=== PATIENT | male | born 1975 | race Caucasian/White ===

== ENCOUNTER 2017-12-25 06:27 | Emergency (ER) | payer BC ==
[2017-12-25] MEDS ORDERED: NA CHLORIDE 0.9% 1,000 ML ONE (07:20)
[2017-12-25 07:45] LABS: Absolute Lymphocytes (CBC) 1.3 K/uL (0.7-4.9); Absolute Monocytes 0.7 K/uL (0.1-1.3); Absolute Neutrophil 6.1 K/uL (1.8-8.0); Basophils % 0.1 % (0-1.3); Eosinophils % 0.5 % (0-4.4); Hematocrit 47.4 % (39.6-49.0); Lymphocytes % 15.5 % (15.3-44.8); MCH 29.3 pg (27.0-35.0); MCV 86.3 fL (80-100); MPV 9.5 fL (7.6-11.3); Monocytes % 9.1 % (3.3-12.3); RBC Red Blood Cell Count 5.49 M/uL (4.33-5.43)
[2017-12-25 07:55] LABS: Albumin 4.1 g/dL (3.2-5.5); Bilirubin Direct 0.1 mg/dL (0-0.2); Bilirubin Total 0.8 mg/dL (0.3-1.2); Protein, Total 7.3 g/dL (6.0-8.3)
--- NOTE | 2017-12-25 08:16 | RAD REPORT ---
EXAM DESCRIPTION: CT - Abdomen Pelvis Wo Contrast - 12/25/2017 7:44 am CLINICAL HISTORY: Left flank and lower quadrant pain, testicular pain, vomiting COMPARISON: None. TECHNIQUE: Axial [address] imaging of the abdomen and pelvis was performed without IV contrast. No IV contrast was given because of allergy, abnormal renal function, patient refusal or physician re quest. Oral contrast was given. All CT scans are performed using dose optimization technique as appropriate and may include automated exposure control or mA/KV adjustment according to patient size. FINDINGS: No suspicious findings in the lung bases. The liver, spleen and pancreas show no suspicious findings on non-contrast imaging. Gallbladder and b iliary tree are also without suspicious finding. Gallstones can be occult on CT imaging. Mild left-sided hydronephrosis is present. There is a 5 millimeter distal left ureteral calculus pres ent positioned approximately 2 cm from the UVJ. Numerous phleboliths are seen in the pelvis. No right -sided hydronephrosis. No additional calculi seen. In the hilum of the left kidney an 18 millimeter r ound low-density mass is present believed to be an incidental cyst. No significant adrenal finding. Isodense renal masses and pyelonephritis cannot be excluded in the absence of IV contrast. Partially filled urinary bladder shows no suspicious finding. Prostate gland and seminal vesicles are normal ra nge. No dilated bowel loops or bowel wall thickening. No free air, free fluid or inflammatory stranding. N o mass or bulky lymphadenopathy. Fat filled left inguinal hernia present. A an 18 millimeter umbilica l fat only hernia is present. No suspicious bony findings. IMPRESSION: Mild left-sided hydronephrosis secondary to a 5 millimeter distal ureteral stone positio n approximately 2 cm from the UVJ. Additional nonacute findings detailed in the body of the report. Full assessment is limited is the absence of IV contrast.
[2017-12-25 09:27] LABS: Urine Bacteria NONE SEEN /HPF (NONE SEEN); Urine Culture Reflex Order NOT NEEDED; Urine Mucus LIGHT /HPF (NONE SEEN); Urine RBC >50 /HPF (NONE SEEN)
--- NOTE | 2017-12-25 09:58 | ER ---
Nurse's Notes [facility] Name: Jaya Le Age: 42 yrs Sex: Male : 1975 Arrival Date: 12/25/2017 Time: 06:30 Bed 18 Private MD: Diagnosis: Calculus of ureter Presentation: 12/25 07:10 Presenting complaint: Patient states: Pain started in my groin then went up to my low jl7 back this morning. Transition of care: patient was not received from another setting of care. Onset of symptoms was December 25, 2017. Initial Sepsis Screen: Does the patient meet any 2 criteria? No. Patient's initial sepsis screen is negative. Does the patient have a suspected source of infection? No. Patient's initial sepsis screen is negative. Care prior to arrival: None. 07:10 Method Of Arrival: Ambulatory jl7 07:10 Acuity: KUSHAL 3 jl7 Triage Assessment: 07:20 General: Appears in no apparent distress. uncomfortable, Behavior is calm, cooperative, jl7 appropriate for age. Pain: Complains of pain in groin Pain radiates to posterior aspect of right lateral abdomen and left lower quadrant Pain currently is 1 out of 10 on a pain scale. at worst was 10 out of 10 on a pain scale. Quality of pain is described as pressure, Pain began suddenly, Is intermittent. EENT: No signs and/or symptoms were reported regarding the EENT system. Neuro: Level of Consciousness is awake, alert, obeys commands, Oriented to person, place, time, situation. Cardiovascular: Patient's skin is warm and dry. Respiratory: Airway is patent Respiratory effort is even, unlabored, Respiratory pattern is regular, symmetrical. GI: No signs and/or symptoms were reported involving the gastrointestinal system. : Denies burning with urination. Derm: Skin is pink, warm \T\ dry. Musculoskeletal: No signs and/or symptoms reported regarding the musculoskeletal system. Historical: - Allergies: 07:20 No Known Allergies; jl7 - Home Meds: 07:20 None [Active]; jl7 - PMHx: 07:20 None; jl7 - PSHx: 07:20 None; jl7 - Immunization history:: Adult Immunizations up to date. - Social history:: Patient/guardian denies using alcohol, street drugs, The patient lives alone, Smoking status: Patient/guardian denies using tobacco. - Family history:: not pertinent. Screenin:35 Abuse screen: Denies threats or abuse. Nutritional screening: No deficits noted. jl7 Tuberculosis screening: No symptoms or risk factors identified. Fall Risk IV access (20 points). Total Castro Fall Scale indicates No Risk (0-24 pts). Assessment: 07:20 General: See triage assessment. jl7 07:34 Reassessment: family member remains at bedside with patient. Warm blankets given for ss comfort. Call light within reach. 08:30 Reassessment: No changes from previously documented assessment. Patient and/or family jl7 updated on plan of care and expected duration. Pain level reassessed. Patient is alert, oriented x 3, equal unlabored respirations, skin warm/dry/pink. 09:35 Reassessment: Patient and/or family updated on plan of care and expected duration. Pain jl7 level reassessed. Patient is alert, oriented x 3, equal unlabored respirations, skin warm/dry/pink. Vital Signs: 07:20 BP 116 / 85; Pulse 80; Resp 16 S; Temp 97.7(O); Pulse Ox 96% on R/A; Weight 84.37 kg jl7 (R); Height 5 ft. 6 in. (167.64 cm) (R); Pain 09/05; 08:20 BP 121 / 86; Pulse 75; Resp 16; Pulse Ox 96% ; jl7 09:35 BP 123 / 86; Pulse 74; Resp 16; Pulse Ox 96% ; jl7 07:20 Body Mass Index 30.02 (84.37 kg, 167.64 cm) jl7 ED Course: 06:30 Patient arrived in ED. al2 06:57 Abby Nguyen MD is Attending Physician. ma2 07:12 Osmani Tee RN is Primary Nurse. jl7 07:20 Arm band placed on right wrist. jl7 07:20 Patient has correct armband on for positive identification. Placed in gown. Bed in low jl7 position. Call light in reach. Side rails up X 1. Pulse ox on. NIBP on. Warm blanket given. 07:24 Inserted saline lock: 20 gauge in right antecubital area, using aseptic technique. ss Blood collected. 07:41 CT completed. Patient tolerated procedure well. Patient moved to CT via stretcher. sj Patient moved back from CT. 07:44 CT Abd/Pelvis - Without Cont In Process Unspecified. EDMS 08:56 Triage completed. jl7 09:15 Urine Microscopic Only Sent. [facility] 10:28 No provider procedures requiring assistance completed. IV discontinued, intact, jl7 bleeding controlled, No redness/swelling at site. Pressure dressing applied. Administered Medications: 07:33 Drug: NS 0.9% 1000 ml Route: IV; Rate: 1 bolus; Site: right antecubital; 08:30 Follow up: IV Status: Completed infusion jl7 Outcome: 09:58 Discharge ordered by . willian 10:28 Discharged to home ambulatory. jl7 10:28 Condition: stable 10:28 Discharge instructions given to patient, family, Instructed on discharge instructions, follow up and referral plans. medication usage, Demonstrated understanding of instructions, follow-up care, medications, Prescriptions given X 3. 10:29 Patient left the ED. jl7 Signatures: Dispatcher [employer] EDKathryn Lord Shelby, Magali Prescott RN [facility] Osmani Tee RN RN 7 Debbie Dempsey Mohammad, MD MD ma2
--- NOTE | 2017-12-25 09:58 | EDPHYS ---
Physician Documentation [facility] Name: Jaya Le Age: 42 yrs Sex: Male : 1975 Arrival Date: 12/25/2017 Time: 06:30 Bed 18 Private MD: ED Physician Abby Nguyen HPI: 12/25 07:08 This 42 yrs old Male presents to ER via Unassigned with complaints of ma2 Testicular Pain. 07:08 The patient presents with flank pain, described as dull. Onset: The symptoms/episode ma2 began/occurred gradually, 1 day(s) ago. Associated signs and symptoms: Pertinent positives: abdominal pain, vomiting. Severity of symptoms: At their worst the symptoms were severe, in the emergency department the symptoms have resolved. The patient has not experienced similar symptoms in the past. 6 hours of constant severe left lower quadrant pain that radiated to both testicles. had 2 episodes of vomiting, pain is resolved never had this before . Historical: - Allergies: 07:20 No Known Allergies; jl7 - Home Meds: 07:20 None [Active]; jl7 - PMHx: 07:20 None; jl7 - PSHx: 07:20 None; jl7 - Immunization history:: Adult Immunizations up to date. - Social history:: Patient/guardian denies using alcohol, street drugs, The patient lives alone, Smoking status: Patient/guardian denies using tobacco. - Family history:: not pertinent. ROS: 07:08 Constitutional: Negative for fever, chills, and weight loss, Eyes: Negative for injury, ma2 pain, redness, and discharge, ENT: Negative for injury, pain, and discharge, Neck: Negative for injury, pain, and swelling, Cardiovascular: Negative for chest pain, palpitations, and edema, Respiratory: Negative for shortness of breath, cough, wheezing, and pleuritic chest pain, Back: Negative for injury and pain, MS/Extremity: Negative for injury and deformity, Skin: Negative for injury, rash, and discoloration, Neuro: Negative for headache, weakness, numbness, tingling, and seizure, Psych: Negative for depression, anxiety, suicide ideation, homicidal ideation, and hallucinations, Allergy/Immunology: Negative for hives, rash, and allergies, Endocrine: Negative for neck swelling, polydipsia, polyuria, polyphagia, and marked weight changes, Hematologic/Lymphatic: Negative for swollen nodes, abnormal bleeding, and unusual bruising. Exam: 07:08 Constitutional: This is a well developed, well nourished patient who is awake, alert, ma2 and in no acute distress. Head/Face: Normocephalic, atraumatic. Chest/axilla: Normal chest wall appearance and motion. Nontender with no deformity. No lesions are appreciated. Cardiovascular: Regular rate and rhythm with a normal S1 and S2. No gallops, murmurs, or rubs. Normal PMI, no JVD. No pulse deficits. Respiratory: Lungs have equal breath sounds bilaterally, clear to auscultation and percussion. No rales, rhonchi or wheezes noted. No increased work of breathing, no retractions or nasal flaring. Abdomen/GI: Soft, non-tender, with normal bowel sounds. No distension or tympany. No guarding or rebound. No evidence of tenderness throughout. Male : Normal genitalia with no discharge or lesions. Vital Signs: 07:20 BP 116 / 85; Pulse 80; Resp 16 S; Temp 97.7(O); Pulse Ox 96% on R/A; Weight 84.37 kg jl7 (R); Height 5 ft. 6 in. (167.64 cm) (R); Pain 1/10; 08:20 BP 121 / 86; Pulse 75; Resp 16; Pulse Ox 96% ; jl7 09:35 BP 123 / 86; Pulse 74; Resp 16; Pulse Ox 96% ; jl7 07:20 Body Mass Index 30.02 (84.37 kg, 167.64 cm) 7 MDM: 06:58 Patient medically screened. ma2 07:08 Differential diagnosis: nonspecific abdominal pain, UTI, prostatitis, left ureteric ma2 stone vs kidney stone vs pyelonephritis unlikely testicular condition such as torsion or epididymitis given normal exam, unlikely diverticulitis given no tenderness. Data reviewed: vital signs, nurses notes, EMS record, diagnostic data from outside facility. 09:56 Counseling: I had a detailed discussion with the patient and/or guardian regarding: the ma2 historical points, exam findings, and any diagnostic results supporting the discharge/admit diagnosis, the presence of at least one elevated blood pressure reading (>120/80) during this emergency department visit, the need for outpatient follow up. Response to treatment: the patient's symptoms have markedly improved after treatment. ED course: has 5 mm stone 2 cm above UPJ, no symptoms now will send to urology outpatient with flomax zofran and T3 . 12/25 07:08 Order name: Amylase, Serum; Complete Time: 08:34 ma12/25 07:08 Order name: Basic Metabolic Panel; Complete Time: 08:34 ia12/25 07:08 Order name: CBC with Diff; Complete Time: 07:47 12/25 07:08 Order name: Creatinine for Radiology; Complete Time: 08:34 ia12/25 07:08 Order name: Hepatic Function; Complete Time: 08:34 ia12/25 07:08 Order name: Lipase; Complete Time: 08:34 ia12/25 07:08 Order name: Urine Microscopic Only; Complete Time: 09:54 12/25 09:56 Interpretation: Abnormal. 12/25 07:08 Order name: IV Saline Lock; Complete Time: 07:33 12/25 07:08 Order name: Labs collected and sent; Complete Time: 07:33 12/25 07:08 Order name: Urine Dipstick-Ancillary (obtain specimen); Complete Time: 09:15 ia12/25 07:08 Order name: CT Abd/Pelvis - Without Cont; Complete Time: 08:34 12/25 09:19 Order name: Urine Dipstick--Ancillary (enter results) ag Administered Medications: 07:33 Drug: NS 0.9% 1000 ml Route: IV; Rate: 1 bolus; Site: right antecubital; ss 08:30 Follow up: IV Status: Completed infusion jl7 Disposition: 12/25/17 09:58 Discharged to Home. Impression: Calculus of ureter. - Condition is Stable. - Discharge Instructions: Kidney Stones, Ureteral Colic, Ureteral Colic, [id number], Dietary Guidelines to Help Prevent Kidney Stones. - Prescriptions for Tylenol- Codeine #3 300-30 mg Oral Tablet - take 2 tablet by ORAL route every 6 hours As needed; 30 tablet. Zofran 4 mg Oral Tablet - take 1 tablet by ORAL route every 12 hours As needed; 20 tablet. Flomax 0.4 mg Oral Capsule, Sust. Release 24 hr - take 1 capsule by ORAL route once daily 1/2 hour following the same meal each day; 30 capsule. - Family Work Release, Medication Reconciliation Form, Thank You Letter, Antibiotic Education, Prescription Opioid Use form. - Follow up: Private Physician; When: Tomorrow; Reason: Continuance of care. - Problem is new. - Symptoms have improved. Signatures: Dispatcher [employer] Pavithra Zepeda RN RN ss Osmani Tee RN RN jl7 Abby Nguyen MD MD ma2
[2017-12-25 12:14] LABS: Urine Blood 3+ (NEG); Urine Glucose NEGATIVE (NEG); Urine Protein NEGATIVE (NEG); Urine Specific Gravity 1.015 (1.005-1.030); Urine pH 5.5 (5.0-7.0)
== END 2017-12-25 10:29 | disposition home or self-care (01) ==
LOC: ER 06:27
DX: N20.1 Calculus of ureter (principal)
CPT/HCPCS: 36415; 74176; 80048; 80076; 81003; 81015; 82150; 83690; 85025; 96360; 99284; J7030

== ENCOUNTER 2018-01-15 08:07 | Emergency (ER) | payer BC ==
[2018-01-15] MEDS ORDERED: KETOROLAC 30 MG/ML INJ ONE (08:33)
[2018-01-15] MEDS ORDERED: ONDANSETRON 4 MG/2 ML VIAL ONE (08:33)
[2018-01-15] MEDS ORDERED: NA CHLORIDE 0.9% 1,000 ML ONE (08:34)
[2018-01-15 08:40] LABS: Absolute Lymphocytes (CBC) 1.1 K/uL (0.7-4.9); Absolute Neutrophil 11.3 K/uL (1.8-8.0); Basophils % 0.1 % (0-1.3); Hematocrit 46.3 % (39.6-49.0); Lymphocytes % 8.3 % (15.3-44.8); MCH 28.9 pg (27.0-35.0); MCV 87.1 fL (80-100); MPV 9.2 fL (7.6-11.3); Monocytes % 7.7 % (3.3-12.3); RBC Red Blood Cell Count 5.32 M/uL (4.33-5.43)
[2018-01-15 08:50] LABS: Urine Blood 2+ (NEG); Urine Glucose NEGATIVE (NEG); Urine Protein NEGATIVE (NEG); Urine Specific Gravity >1.030 (1.005-1.030)
[2018-01-15 08:51] LABS: Potassium 3.8 mEq/L (3.6-5.0)
--- NOTE | 2018-01-15 09:16 | RAD REPORT ---
EXAM DESCRIPTION: CT - Stone Protocol - 01/15/2018 8:52 am CLINICAL HISTORY: Flank pain. COMPARISON: 12/25/2017 CT TECHNIQUE: Axial images were obtained without oral or IV contrast. Lack of contrast limits solid org an and vascular assessment. The [id number] spans the entirety of the system partially obscuring uppermost abdomen and lung bases. Coronal reformatted images were obtained and reviewed. All CT scans are performed using dose optimization technique as appropriate and may include automated exposure control or mA/KV adjustment according to patient size. FINDINGS: The lower lung hong are clear. Imaged portions of the liver and spleen show no suspicious findings on non-contrast imaging. The panc reas and adrenal glands are normal. No pathologic lymphadenopathy in the abdomen or pelvis. The previously noted 4-5 mm distal left ureter calculus appears to have migrated slightly inferiorly resting approximately 5 mm from the left UVJ. Mild left-sided hydronephrosis is present. No renal alexander culi in either kidney. No bladder calculus. Small fat containing umbilical hernia. No bowel obstruction, free air, free fluid or abscess. The appendix is not identified as a discrete s tructure, however, no secondary findings of appendicitis are identified. Moderate L5-S1 spondylosis. IMPRESSION: Small distal left ureter stone has migrated to the level of the left UVJ since the denys rative study. Mild left hydronephrosis persists.
[2018-01-15 09:43] LABS: Calcium Oxalate Crystals- Ur PRESENT (NONE SEEN); Urine Bacteria <20 /HPF (NONE SEEN); Urine Culture Reflex Order NOT NEEDED
--- NOTE | 2018-01-15 10:11 | ER ---
Nurse's Notes [facility] Name: Jaya Le Age: 42 yrs Sex: Male : 1975 Arrival Date: 01/15/2018 Time: 08:11 Bed 15 Private MD: None, None Diagnosis: Calculus of kidney and ureter Presentation: 01/15 08:15 Presenting complaint: Patient states: dx with kidney stone two weeks ago, states at 0300 woke up with sharp stabbing pain to L side, and has been vomiting since then. Transition of care: patient was not received from another setting of care. Onset of symptoms was January 15, 2018 at 03:00. Risk Assessment: Do you want to hurt yourself or someone else? Patient reports no desire to harm self or others. Initial Sepsis Screen: Does the patient meet any 2 criteria? No. Patient's initial sepsis screen is negative. Does the patient have a suspected source of infection? No. Patient's initial sepsis screen is negative. Care prior to arrival: None. 08:15 Method Of Arrival: Ambulatory 08:15 Acuity: KUSHAL 3 ch Triage Assessment: 08:18 General: Appears in no apparent distress. comfortable, Behavior is calm, cooperative, ch appropriate for age. Pain: Complains of pain in left low back, left mid back, anterior aspect of left lateral abdomen, posterior aspect of left lateral abdomen and pelvis Pain currently is 9 out of 10 on a pain scale. Pain began suddenly. GI: Abdomen is round non-distended, Bowel sounds present X 4 quads. Reports nausea, vomiting. : Reports decreased urination, flank pain. Derm: Skin is pink, warm \T\ dry. Historical: - Allergies: 08:18 No Known Allergies; ch - Home Meds: 08:18 Flomax 0.4 mg Oral cp24 1 cap once daily [Active]; ch - PMHx: 08:18 Kidney stones; ch - PSHx: 08:18 None; ch - Immunization history:: Adult Immunizations up to date, Last tetanus immunization: not indicated for visit today. Flu vaccine is not up to date. - Social history:: Smoking status: Patient/guardian denies using tobacco, Patient/guardian denies using alcohol, street drugs. Screenin:20 Abuse screen: Denies threats or abuse. Denies injuries from another. Nutritional ch screening: No deficits noted. Tuberculosis screening: No symptoms or risk factors identified. Fall Risk None identified. Assessment: 08:20 GI: Abd is soft and non tender X 4 quads. GI: Reports nausea, vomiting. ch 08:43 Reassessment: Patient appears in no apparent distress at this time. Patient and/or ch family updated on plan of care and expected duration. Pain level reassessed. Patient is alert, oriented x 3, equal unlabored respirations, skin warm/dry/pink. Patient states feeling better. Patient states symptoms have improved. 10:19 Reassessment: Patient appears in no apparent distress at this time. Patient and/or ch family updated on plan of care and expected duration. Pain level reassessed. Patient is alert, oriented x 3, equal unlabored respirations, skin warm/dry/pink. Patient states feeling better. Patient states symptoms have improved. Vital Signs: 08:18 BP 152 / 100; Pulse 69; Resp 18; Temp 97.6(O); Pulse Ox 97% on R/A; Weight 81.65 kg; ch Height 5 ft. 7 in. (170.18 cm); Pain 9/10; 09:03 BP 155 / 87; Pulse 62; Resp 15; Pulse Ox 98% on R/A; Pain 7/10; ch 10:19 BP 132 / 78; Pulse 58; Resp 16; Temp 98.3; Pulse Ox 99% on R/A; Pain 5/10; ch 08:18 Body Mass Index 28.19 (81.65 kg, 170.18 cm) ED Course: 08:11 Patient arrived in ED. mr 08:11 None, None is Private Physician. mr 08:12 A[facility] Salguero [facility]C [facility]. kb 08:12 William Jameson MD is Attending Physician. kb 08:15 Ivanna Solares, LEOPOLDO is Primary Nurse. ch 08:17 Triage completed. ch 08:18 Arm band placed on left wrist. ch 08:20 No apparent distress. Resting quietly. ch 08:20 Patient has correct armband on for positive identification. Placed in gown. Bed in low ch position. Call light in reach. Side rails up X 1. Pulse ox on. NIBP on. Warm blanket given. 08:20 No provider procedures requiring assistance completed. ch 08:30 Inserted saline lock: 18 gauge in right antecubital area, using aseptic technique. ch Blood collected. 08:50 CT completed. Patient tolerated procedure well. Patient moved to CT via wheelchair. sj Patient moved back from CT. 08:52 CT Stone Protocol In Process Unspecified. EDMS 10:10 Liang Casarez MD is Referral Physician. kb 10:19 IV discontinued, intact, bleeding controlled, No redness/swelling at site. Pressure ch dressing applied. Administered Medications: 08:35 Drug: NS 0.9% 1000 ml Route: IV; Rate: 1000 ml; Site: right antecubital; ch 10:22 Follow up: IV Status: Completed infusion; IV Intake: 1000ml ch 08:35 Drug: TORadol 30 mg Route: IVP; Site: right antecubital; ch 10:22 Follow up: Response: No adverse reaction; Marked relief of symptoms ch 08:35 Drug: Zofran 4 mg Route: IVP; Site: right antecubital; ch 10:22 Follow up: Response: No adverse reaction; Marked relief of symptoms ch Intake: 10:22 IV: 1000ml; Total: 1000ml. ch Outcome: 10:10 Discharge ordered by . kb 10:19 Discharged to home ambulatory, with family. ch 10:19 Condition: improved 10:19 Discharge instructions given to patient, family, Instructed on discharge instructions, follow up and referral plans. medication usage, Demonstrated understanding of instructions, follow-up care, medications, Prescriptions given X 1. 10:20 Patient left the ED. ch Signatures: Dispatcher [employer] EDPR Alyssa Salguero, CIERRA MARTINEZ-Ivanna Myers, RN Magali Tao ch, Susan sj
--- NOTE | 2018-01-15 10:11 | EDPHYS ---
Physician Documentation [facility] Name: Jaya Le Age: 42 yrs Sex: Male : 1975 Arrival Date: 01/15/2018 Time: 08:11 Bed 15 Private MD: None, None ED Physician William Jameson HPI: 01/15 08:25 This 42 yrs old Male presents to ER via Ambulatory with complaints of kb Possible Kidney Stone. 08:25 The patient complains of pain in the left flank. The pain radiates to the groin. Onset: kb The symptoms/episode began/occurred this morning, at 03:00. Modifying factors: The symptoms are alleviated by nothing. the symptoms are aggravated by nothing. Associated signs and symptoms: Pertinent positives: nausea, vomiting, Pertinent negatives: diarrhea, dizziness, dysuria, fever, urinary frequency, headache, nausea, pain radiating to the lower extremities. Severity of pain: At its worst the pain was moderate in the emergency department the pain is unchanged. The patient has not experienced similar symptoms in the past. The patient has not recently seen a physician. Historical: - Allergies: 08:18 No Known Allergies; ch - Home Meds: 08:18 Flomax 0.4 mg Oral cp24 1 cap once daily [Active]; ch - PMHx: 08:18 Kidney stones; ch - PSHx: 08:18 None; ch - Immunization history:: Adult Immunizations up to date, Last tetanus immunization: not indicated for visit today. Flu vaccine is not up to date. - Social history:: Smoking status: Patient/guardian denies using tobacco, Patient/guardian denies using alcohol, street drugs. ROS: 08:24 Constitutional: Negative for fever, chills, and weight loss, Cardiovascular: Negative kb for chest pain, palpitations, and edema, Respiratory: Negative for shortness of breath, cough, wheezing, and pleuritic chest pain, Abdomen/GI: Negative for abdominal pain, nausea, vomiting, diarrhea, and constipation, : Negative for injury, bleeding, discharge, and swelling, MS/Extremity: Negative for injury and deformity, Skin: Negative for injury, rash, and discoloration, Neuro: Negative for headache, weakness, numbness, tingling, and seizure. 08:24 Back: Positive for flank pain, on the left, radiated pain, Negative for injury or acute deformity, decreased range of motion, pain at rest, pain with movement. Exam: 08:24 Constitutional: This is a well developed, well nourished patient who is awake, alert, kb and in no acute distress. Head/Face: Normocephalic, atraumatic. Chest/axilla: Normal chest wall appearance and motion. Nontender with no deformity. No lesions are appreciated. Cardiovascular: Regular rate and rhythm with a normal S1 and S2. No gallops, murmurs, or rubs. Normal PMI, no JVD. No pulse deficits. Respiratory: Lungs have equal breath sounds bilaterally, clear to auscultation and percussion. No rales, rhonchi or wheezes noted. No increased work of breathing, no retractions or nasal flaring. Back: No spinal tenderness. No costovertebral tenderness. Full range of motion. Skin: Warm, dry with normal turgor. Normal color with no rashes, no lesions, and no evidence of cellulitis. MS/ Extremity: Pulses equal, no cyanosis. Neurovascular intact. Full, normal range of motion. Neuro: Awake and alert, GCS 15, oriented to person, place, time, and situation. Cranial nerves II-XII grossly intact. Motor strength 5/5 in all extremities. Sensory grossly intact. Cerebellar exam normal. Normal gait. 08:24 Abdomen/GI: Inspection: abdomen appears normal, Bowel sounds: normal, in all quadrants, Palpation: soft, in all quadrants, mild abdominal tenderness, in the left upper quadrant. Vital Signs: 08:18 BP 152 / 100; Pulse 69; Resp 18; Temp 97.6(O); Pulse Ox 97% on R/A; Weight 81.65 kg; ch Height 5 ft. 7 in. (170.18 cm); Pain 9/10; 09:03 BP 155 / 87; Pulse 62; Resp 15; Pulse Ox 98% on R/A; Pain 7/10; ch 10:19 BP 132 / 78; Pulse 58; Resp 16; Temp 98.3; Pulse Ox 99% on R/A; Pain 5/10; ch 08:18 Body Mass Index 28.19 (81.65 kg, 170.18 cm) MDM: 08:12 Patient medically screened. kb 08:24 Data reviewed: vital signs, nurses notes. Data interpreted: Pulse oximetry: on room air kb is 97 %. Interpretation: normal. 09:29 Counseling: I had a detailed discussion with the patient and/or guardian regarding: the kb historical points, exam findings, and any diagnostic results supporting the discharge/admit diagnosis, lab results, radiology results, the need for outpatient follow up, a urologist, to return to the emergency department if symptoms worsen or persist or if there are any questions or concerns that arise at home. 10:11 ED course: Pt states he still has flomax that he has been taking, as well as, PRN kb nausea and pain medications. Educated on need to follow up with Dr Casarez. Pt states "I know. I just need to take the time off of work to go.". 01/15 08:23 Order name: CBC with Diff; Complete Time: 08:47 kb 01/15 08:23 Order name: Basic Metabolic Panel; Complete Time: 09:17 kb 01/15 08:23 Order name: CT Stone Protocol; Complete Time: 09:17 kb 01/15 08:23 Order name: Urine Microscopic Only; Complete Time: 09:52 kb 01/15 08:36 Order name: Urine Dipstick--Ancillary (enter results); Complete Time: 09:17 bd 01/15 08:23 Order name: Urine Dipstick-Ancillary (obtain specimen); Complete Time: 08:43 kb Administered Medications: 08:35 Drug: NS 0.9% 1000 ml Route: IV; Rate: 1000 ml; Site: right antecubital; ch 10:22 Follow up: IV Status: Completed infusion; IV Intake: 1000ml ch 08:35 Drug: TORadol 30 mg Route: IVP; Site: right antecubital; ch 10:22 Follow up: Response: No adverse reaction; Marked relief of symptoms ch 08:35 Drug: Zofran 4 mg Route: IVP; Site: right antecubital; ch 10:22 Follow up: Response: No adverse reaction; Marked relief of symptoms ch Disposition: 13:42 Co-signature as Attending Physician, William Jameson MD. rn Disposition: 01/15/18 10:10 Discharged to Home. Impression: Calculus of kidney and ureter. - Condition is Stable. - Discharge Instructions: Kidney Stones, [id number], Dietary Guidelines to Help Prevent Kidney Stones. - Prescriptions for Cipro 500 mg Oral Tablet - take 1 tablet by ORAL route every 12 hours for 7 days; 14 tablet. - Medication Reconciliation Form, Thank You Letter, Antibiotic Education, Prescription Opioid Use, Work release form form. - Follow up: Liang Hermelindo; When: 2 - 3 days; Reason: Recheck today's complaints. Follow up: Emergency Department; When: As needed; Reason: Worsening of condition. Signatures: Dispatcher [employer] EDOK Alyssa Salguero, MICHELLE-Andre MARTINEZ-Ivanna Myers, LEOPOLDO RN William Jameson MD MD oncology research rn: (The following items were deleted from the chart) 10:20 10:10 01/15/2018 10:10 Discharged to Home. Impression: Calculus of kidney and ureter. ch Condition is Stable. Discharge Instructions: Kidney Stones, [id number], Dietary Guidelines to Help Prevent Kidney Stones. Prescriptions for Zofran 4 mg Oral Tablet - take 1 tablet by ORAL route every 12 hours As needed; 20 tablet, Cipro 500 mg Oral Tablet - take 1 tablet by ORAL route every 12 hours for 7 days; 14 tablet, Diclofenac Sodium 75 mg Oral Tablet Sustained Release - take 1 tablet by ORAL route 2 times per day; 30 tablet. and Forms are Medication Reconciliation Form, Thank You Letter, Antibiotic Education, Prescription Opioid Use. Follow up: Liang Casarez; When: 2 - 3 days; Reason: Recheck today's complaints. Follow up: Emergency Department; When: As needed; Reason: Worsening of condition. kb
== END 2018-01-15 10:20 | disposition home or self-care (01) ==
LOC: ER 08:07
DX: N20.2 Calculus of kidney with calculus of ureter (principal); Z87.442 Personal history of urinary calculi
CPT/HCPCS: 36415; 74176; 76377; 80048; 81003; 81015; 85025; 96361; 96374; 96375; 99284; J2405; J7030

== ENCOUNTER 2018-01-29 09:15 | Day surgery (SDC) | payer BC ==
[2018-01-29 09:02] LABS: Absolute Lymphocytes (CBC) 2.2 K/uL (0.7-4.9); Absolute Monocytes 0.5 K/uL (0.1-1.3); Absolute Neutrophil 2.2 K/uL (1.8-8.0); Basophils % 0.2 % (0-1.3); Eosinophils % 1.8 % (0-4.4); Lymphocytes % 44.6 % (15.3-44.8); MCH 29.2 pg (27.0-35.0); MCV 87.2 fL (80-100); MPV 9.4 fL (7.6-11.3); Monocytes % 10.3 % (3.3-12.3)
[2018-01-29 09:05] LABS: Protime INR 0.91
[2018-01-29] MEDS ORDERED: PROPOFOL 200 MG/20 ML VIAL IV ONE (09:24)
[2018-01-29] MEDS ORDERED: FENTANYL CITR 100 MCG/2 ML ONE (09:25)
[2018-01-29] MEDS ORDERED: MIDAZOLAM HCL 2 MG/2 ML INJ ONE (09:25)
[2018-01-29] MEDS ORDERED: ONDANSETRON HCL 40 MG/20 ML VIAL ONE (09:27)
[2018-01-29] MEDS ORDERED: Ringers Lactate 1,000 ML IV ONE (09:30)
[2018-01-29 09:36] LABS: Urine Appearance CLEAR; Urine Bilirubin NEGATIVE (NEG); Urine Blood NEGATIVE (NEG); Urine Color YELLOW; Urine Glucose NEGATIVE (NEG); Urine Microscopic Reflex NO UMIC; Urine Protein NEGATIVE (NEG); Urine Urobilinogen 0.2 mg/dL (0.2-1.0); Urine pH 6.5 (5.0-7.0)
[2018-01-29 09:50] LABS: Potassium 4.4 mEq/L (3.6-5.0)
--- NOTE | 2018-01-29 09:53 | RAD REPORT ---
EXAM DESCRIPTION: RAD - Chest Pa And Lat (2 Views) - 01/29/2018 9:19 am CLINICAL HISTORY: Flank pain. COMPARISON: 01/23/2018 FINDINGS: The lungs are clear. The heart is normal in size. No displaced fractures. IMPRESSION: No acute or concerning finding suspected.
[2018-01-29 09:55] LABS: Phosphorus 2.9 mg/dL (2.5-4.3); Uric Acid 7.2 mg/dL (4.8-8.7)
[2018-01-29] MEDS: GENTAMICIN 100 MG/100 ML BAG 100 MG/100 ML BAG IV ONE ×2 (10:23→10:25)
[2018-01-29] MEDS ORDERED: NS 0.9% VIAL 10 ML ONE (10:32)
--- NOTE | 2018-01-29 10:51 | RAD REPORT ---
EXAM DESCRIPTION: RAD - Abdomen 1 View (KUB) - 01/29/2018 9:19 am CLINICAL HISTORY: Flank pain. COMPARISON: 01/23/2018 FINDINGS: The bowel gas pattern is non-obstructive. No evidence of free air or pneumatosis. Small va eze calcification distal left ureter appears unchanged. No significant bony findings. IMPRESSION: No change in small vague distal left ureter calcification.
--- NOTE | 2018-01-29 13:42 | EKG ---
Test Date: 2018-01-29 Test Time: 08:31:28 Pad Making Machine Operator: HELLEN MEASUREMENT RESULTS: Intervals: Rate: 50 LA: 182 QRSD: 112 QT: 436 QTc: 397 [place]: P: 68 LA: 182 QRS: -3 T: 30 INTERPRETIVE STATEMENTS: Sinus bradycardia Otherwise normal ECG No previous ECG available for comparison Electronically Signed On 01-29-18 13:40:44 CDT by Otoniel Grier
== END 2018-01-29 13:00 | disposition home or self-care (01) ==
LOC: OR 09:15
PROVIDERS: ATTEND Urology
PROC: 0TF4XZZ Fragmentation in Left Kidney Pelvis, External Approach (ICD-10-PCS; principal; 2018-01-29 10:00)
DX: N20.0 Calculus of kidney (principal)
CPT/HCPCS: 36415; 50590; 71046; 74018; 80048; 81003; 84100; 84550; 85025; 85610; 85730; 87086; 87088; 93005; J1580; J2250; J2405; J3010; Q9967

== ENCOUNTER 2018-12-19 12:24 | Emergency (ER) | payer BC ==
[2018-12-19 13:46] LABS: Absolute Lymphocytes (CBC) 2.2 K/uL (0.7-4.9); Absolute Monocytes 0.5 K/uL (0.1-1.3); Basophils % 0.1 % (0-1.3); Eosinophils % 2.2 % (0-4.4); Hematocrit 44.1 % (39.6-49.0); Lymphocytes % 45.5 % (15.3-44.8); MPV 9.6 fL (7.6-11.3); Monocytes % 10.8 % (3.3-12.3); Protime INR 0.95; RBC Red Blood Cell Count 5.08 M/uL (4.33-5.43)
--- NOTE | 2018-12-19 13:55 | RAD REPORT ---
EXAM DESCRIPTION: Robb Single View12/19/2018 1:38 pm CLINICAL HISTORY: Chest pain COMPARISON: January 2018 FINDINGS: The lungs appear clear of acute infiltrate. The heart is normal size IMPRESSION: No acute abnormalities displayed
[2018-12-19 14:02] LABS: ALT/SGPT 34 U/L (12-78); AST/SGOT 27 U/L (15-37); Albumin 3.5 g/dL (3.4-5.0); Alkaline Phosphatase 96 U/L (45-117); BUN Blood Urea Nitrogen 11 mg/dL (7-18); Bicarbonate 28 mmol/L (21-32); Bilirubin Direct < 0.1 mg/dL (0-0.2); Bilirubin Total 0.3 mg/dL (0.2-1.0); Glucose Level 92 mg/dL (74-106); Magnesium 2.1 mg/dL (1.8-2.4); NT PRO-BNP 47 pg/mL (<125); Potassium 3.9 mmol/L (3.5-5.1); Protein, Total 6.9 g/dL (6.4-8.2); Sodium Level 145 mmol/L (136-145); Troponin (Emerg Dept Use Only) < 0.02 ng/mL (0.0-0.045)
[2018-12-19 14:36] LABS: Blood Morphology Comment NOT SEEN (NOT SEEN); Platelet Estimate ADEQ
--- NOTE | 2018-12-19 16:43 | EDPHYS ---
Physician Documentation [facility] Name: Jaya Le Age: 43 yrs Sex: Male : 1975 Arrival Date: 12/19/2018 Time: 12:25 Bed 27 Private MD: ED Physician Johnathon Hernández HPI: 12/19 13:07 This 43 yrs old Male presents to ER via Ambulatory with complaints of Chest pm1 Pain. 13:07 The patient or guardian reports chest pain that is located primarily in the right of pm1 mid-sternal area. Onset: last night. The pain does not radiate. Associated signs and symptoms: Pertinent negatives: abdominal pain, cough, dizziness, headache, nausea, palpitations, shortness of breath, vomiting. The chest pain is described as a pressure. Duration: The patient or guardian reports multiple episodes, that have now resolved. Severity of pain: in the emergency department the pain is a 0 / 10. The patient has not experienced similar symptoms in the past. The patient has not recently seen a physician. Historical: - Allergies: 12:40 No Known Allergies; aj1 - Home Meds: 12:40 None [Active]; aj1 - PMHx: 12:40 Kidney stones; aj1 - PSHx: 12:40 None; aj1 - Immunization history:: Flu vaccine is up to date. - Social history:: Smoking status: Patient/guardian denies using tobacco. - Ebola Screening: : Patient denies travel to an Ebola-affected area in the 21 days before illness onset. ROS: 13:07 Constitutional: Negative for fever, chills, and weight loss, Eyes: Negative for injury, pm1 pain, redness, and discharge, ENT: Negative for injury, pain, and discharge, Neck: Negative for injury, pain, and swelling. 13:07 Respiratory: Negative for shortness of breath, cough, wheezing, and pleuritic chest pain, Abdomen/GI: Negative for abdominal pain, nausea, vomiting, diarrhea, and constipation, Back: Negative for injury and pain, : Negative for injury, bleeding, discharge, and swelling, MS/Extremity: Negative for injury and deformity, Skin: Negative for injury, rash, and discoloration, Neuro: Negative for headache, weakness, numbness, tingling, and seizure. 13:07 Cardiovascular: Positive for chest pain, Negative for edema, orthopnea, palpitations. Exam: 13:07 Constitutional: This is a well developed, well nourished patient who is awake, alert, pm1 and in no acute distress. Head/Face: Normocephalic, atraumatic. Eyes: Pupils equal round and reactive to light, extra-ocular motions intact. Lids and lashes normal. Conjunctiva and sclera are non-icteric and not injected. Cornea within normal limits. Periorbital areas with no swelling, redness, or edema. ENT: Nares patent. No nasal discharge, no septal abnormalities noted. Tympanic membranes are normal and external auditory canals are clear. Oropharynx with no redness, swelling, or masses, exudates, or evidence of obstruction, uvula midline. Mucous membranes moist. Neck: Trachea midline, no thyromegaly or masses palpated, and no cervical lymphadenopathy. Supple, full range of motion without nuchal rigidity, or vertebral point tenderness. No Meningismus. Chest/axilla: Normal chest wall appearance and motion. Nontender with no deformity. No lesions are appreciated. Cardiovascular: Regular rate and rhythm with a normal S1 and S2. No gallops, murmurs, or rubs. Normal PMI, no JVD. No pulse deficits. Respiratory: Lungs have equal breath sounds bilaterally, clear to auscultation and percussion. No rales, rhonchi or wheezes noted. No increased work of breathing, no retractions or nasal flaring. Abdomen/GI: Soft, non-tender, with normal bowel sounds. No distension or tympany. No guarding or rebound. No evidence of tenderness throughout. Back: No spinal tenderness. No costovertebral tenderness. Full range of motion. Skin: Warm, dry with normal turgor. Normal color with no rashes, no lesions, and no evidence of cellulitis. MS/ Extremity: Pulses equal, no cyanosis. Neurovascular intact. Full, normal range of motion. 13:07 Neuro: Orientation: is normal, Motor: is normal, moves all fours, Sensation: is normal, no obvious gross deficits. 14:00 Sinus bradycardia with sinus arrhythmia 58 BPM pm1 Vital Signs: 12:40 BP 126 / 94; Pulse 70; Resp 18; Temp 97.6; Pulse Ox 96% on R/A; Weight 81.65 kg (R); aj1 Height 5 ft. 6 in. (167.64 cm) (R); Pain 3/10; 13:39 BP 107 / 75; Pulse 58; Resp 19 S; Pulse Ox 97% on R/A; ca1 14:24 BP 103 / 73; Pulse 61; Resp 18 S; Pulse Ox 98% on R/A; ca1 15:24 BP 101 / 74; Pulse 58; Resp 19 S; Pulse Ox 97% on R/A; ca1 16:30 BP 114 / 74; Pulse 62; Resp 18 S; Pulse Ox 98% on R/A; ca1 12:40 Body Mass Index 29.05 (81.65 kg, 167.64 cm) aj1 MDM: 13:23 Patient medically screened. pm1 16:42 Data reviewed: vital signs. Data interpreted: Pulse oximetry: on room air is 97 %. pm1 Interpretation: normal. Counseling: I had a detailed discussion with the patient and/or guardian regarding: the historical points, exam findings, and any diagnostic results supporting the discharge/admit diagnosis, lab results, radiology results, the need for outpatient follow up, to return to the emergency department if symptoms worsen or persist or if there are any questions or concerns that arise at home. 12/19 13:00 Order name: Basic Metabolic Panel; Complete Time: 14:12/19 13:00 Order name: CBC with Diff; Complete Time: 14:12/19 13:00 Order name: LFT's; Complete Time: 14:12/19 13:00 Order name: Magnesium; Complete Time: 14:12/19 13:00 Order name: NT PRO-BNP; Complete Time: 14:12/19 13:00 Order name: PT-INR; Complete Time: 13:54 12/19 13:00 Order name: Troponin (emerg Dept Use Only); Complete Time: 14:12/19 13:00 Order name: XRAY Chest (1 view); Complete Time: 14:12/19 13:00 Order name: EKG; Complete Time: 13:12/19 13:00 Order name: Cardiac monitoring; Complete Time: 13:54 12/19 13:00 Order name: EKG - Nurse/Tech; Complete Time: 13:54 12/19 13:00 Order name: IV Saline Lock; Complete Time: 13:55 ss 12/19 13:00 Order name: Labs collected and sent; Complete Time: 13:55 ss 12/19 13:52 Order name: Manual Differential; Complete Time: 14:51 EDMS 12/19 13:00 Order name: O2 Per Protocol; Complete Time: 13:54 ss 12/19 13:00 Order name: O2 Sat Monitoring; Complete Time: 13:54 ss Administered Medications: No medications were administered Disposition: 12/19/18 16:42 Discharged to Home. Impression: Chest pain, unspecified. - Condition is Stable. - Discharge Instructions: Nonspecific Chest Pain. - Medication Reconciliation Form, Thank You Letter, Antibiotic Education, Prescription Opioid Use form. - Follow up: Emergency Department; When: As needed; Reason: Worsening of condition. Follow up: Private Physician; When: 2 - 3 days; Reason: Recheck today's complaints, Continuance of care, Re-evaluation by your physician. - Problem is new. - Symptoms have improved. Addendum: 12/24/2018 10:34 Co-signature as Attending Physician, Johnathon Hernández MD I agree with the assessment and k dr plan of care. Signatures: Dispatcher [employer] EDAK Kirsten Olmedo RN RN aj1 Johnathon Hernández MD MD [facility] Pavithra Frost RN RN ss Kiko Obando NP WEB PRESS OPERATOR APPRENTICE pm1 Debra Munoz RN RN ca1 Corrections: (The following items were deleted from the chart) 12/19 17:10 16:42 12/19/2018 16:42 Discharged to Home. Impression: Chest pain, unspecified. ca1 Condition is Stable. Forms are Medication Reconciliation Form, Thank You Letter, Antibiotic Education, Prescription Opioid Use. Follow up: Emergency Department; When: As needed; Reason: Worsening of condition. Follow up: Private Physician; When: 2 - 3 days; Reason: Recheck today's complaints, Continuance of care, Re-evaluation by your physician. Problem is new. Symptoms have improved. pm1
--- NOTE | 2018-12-19 16:43 | ER ---
Nurse's Notes [facility] Name: Jaya Le Age: 43 yrs Sex: Male : 1975 Arrival Date: 12/19/2018 Time: 12:25 Bed 27 Private MD: Diagnosis: Chest pain, unspecified Presentation: 12/19 12:38 Presenting complaint: Patient states: "Last night it started a pressure in my chest. I aj1 had cold sweats when it started. I went to sleep and it was still there when I woke up but then it eased off so I went to go to work, but then the pain came back really strong so I decided to have it checked out." Reports substernal chest pressure. Denies SOB, nausea, palpitations. Transition of care: patient was not received from another setting of care. Onset of symptoms was December 18, 2017. Risk Assessment: Do you want to hurt yourself or someone else? Patient reports no desire to harm self or others. Initial Sepsis Screen: Does the patient meet any 2 criteria? No. Patient's initial sepsis screen is negative. Does the patient have a suspected source of infection? No. Patient's initial sepsis screen is negative. Care prior to arrival: None. 12:38 Method Of Arrival: Ambulatory aj1 12:38 Acuity: KUSHAL 3 aj1 Triage Assessment: 12:40 General: Appears in no apparent distress. comfortable, Behavior is calm, cooperative, aj1 appropriate for age. Pain: Complains of pain in mid-sternal area Pain does not radiate. Pain currently is 2 out of 10 on a pain scale. Quality of pain is described as pressure. Pain: Pain began 1 day ago. Neuro: Level of Consciousness is awake, alert, obeys commands, Oriented to person, place, time, situation. Cardiovascular: Reports chest pain, Denies nausea, palpitations, shortness of breath, Patient's skin is warm and dry. Respiratory: Airway is patent Respiratory effort is even, unlabored, Respiratory pattern is regular, symmetrical. Historical: - Allergies: 12:40 No Known Allergies; aj1 - Home Meds: 12:40 None [Active]; aj1 - PMHx: 12:40 Kidney stones; aj1 - PSHx: 12:40 None; aj1 - Immunization history:: Flu vaccine is up to date. - Social history:: Smoking status: Patient/guardian denies using tobacco. - Ebola Screening: : Patient denies travel to an Ebola-affected area in the 21 days before illness onset. Screenin:45 Abuse screen: Denies threats or abuse. Denies injuries from another. Nutritional ca1 screening: No deficits noted. Tuberculosis screening: No symptoms or risk factors identified. 12:45 Fall Risk None identified. ca1 Assessment: 12:45 General: Appears in no apparent distress. comfortable, Behavior is calm, cooperative, ca1 appropriate for age. Pain: Complains of pain in chest and mid-sternal area Pain does not radiate. Pain currently is 6 out of 10 on a pain scale. Quality of pain is described as tightness Pain began 13 hours ago Is intermittent. Neuro: Level of Consciousness is awake, alert, obeys commands, Oriented to person, place, time, situation. Cardiovascular: Heart tones S1 S2 present Capillary refill < 3 seconds Rhythm is sinus rhythm. Respiratory: Airway is patent Respiratory effort is even, unlabored, Respiratory pattern is regular, symmetrical, Breath sounds are clear bilaterally. GI: Abdomen is flat, non-distended, Bowel sounds present X 4 quads. Abd is soft and non tender X 4 quads. : No deficits noted. No signs and/or symptoms were reported regarding the genitourinary system. EENT: No deficits noted. No signs and/or symptoms were reported regarding the EENT system. Derm: Skin is intact, is healthy with good turgor, Skin is pink, warm \\T\\ dry. Musculoskeletal: Circulation, motion, and sensation intact. Capillary refill < 3 seconds. 13:40 Reassessment: Patient appears in no apparent distress at this time. Patient and/or ca1 family updated on plan of care and expected duration. Pain level reassessed. Patient is alert, oriented x 3, equal unlabored respirations, skin warm/dry/pink. 14:24 Reassessment: Patient appears in no apparent distress at this time. Patient is alert, ca1 oriented x 3, equal unlabored respirations, skin warm/dry/pink. 15:24 Reassessment: Patient appears in no apparent distress at this time. Patient and/or ca1 family updated on plan of care and expected duration. Pain level reassessed. Patient is alert, oriented x 3, equal unlabored respirations, skin warm/dry/pink. 16:30 Reassessment: Patient appears in no apparent distress at this time. Patient and/or ca1 family updated on plan of care and expected duration. Pain level reassessed. Patient is alert, oriented x 3, equal unlabored respirations, skin warm/dry/pink. Patient states feeling better. Vital Signs: 12:40 BP 126 / 94; Pulse 70; Resp 18; Temp 97.6; Pulse Ox 96% on R/A; Weight 81.65 kg (R); aj1 Height 5 ft. 6 in. (167.64 cm) (R); Pain 3/10; 13:39 BP 107 / 75; Pulse 58; Resp 19 S; Pulse Ox 97% on R/A; ca1 14:24 BP 103 / 73; Pulse 61; Resp 18 S; Pulse Ox 98% on R/A; ca1 15:24 BP 101 / 74; Pulse 58; Resp 19 S; Pulse Ox 97% on R/A; ca1 16:30 BP 114 / 74; Pulse 62; Resp 18 S; Pulse Ox 98% on R/A; ca1 12:40 Body Mass Index 29.05 (81.65 kg, 167.64 cm) aj1 ED Course: 12:25 Patient arrived in ED. as 12:39 Triage completed. aj1 12:40 Arm band placed on. aj1 12:45 Patient has correct armband on for positive identification. Placed in gown. Bed in low ca1 position. Call light in reach. Side rails up X 1. teletypesetter monitor on. Pulse ox on. NIBP on. Warm blanket given. 12:49 Debra Munoz, LEOPOLDO is Primary Nurse. ca1 12:54 EKG done, by roving technician. reviewed by Johnathon Hernández MD. at1 13:00 Patient maintains SpO2 saturation greater than 95% on room air. ca1 13:00 No provider procedures requiring assistance completed. Inserted saline lock: 20 gauge ca1 in right antecubital area, using aseptic technique. Blood collected. 13:09 Kiko Obando NP is PHCP. pm1 13:09 Johnathon Hernández MD is Attending Physician. pm1 13:38 XRAY Chest (1 view) In Process Unspecified. EDMS 17:08 IV discontinued, intact, bleeding controlled, No redness/swelling at site. Pressure ca1 dressing applied. Administered Medications: No medications were administered Outcome: 16:42 Discharge ordered by MD. pm1 17:07 Discharged to home ambulatory. ca1 17:07 Condition: stable 17:07 Discharge instructions given to patient, Instructed on discharge instructions, follow up and referral plans. Demonstrated understanding of instructions, follow-up care. 17:10 Patient left the ED. ca1 Signatures: Dispatcher [employer] EDKirsten Elkins RN RN aj1 Lucy Rebollar Amanda, manager scheduling EKG Tat1 Kiko Obando, ONEIDA BOARDING SPECIALIST pm1 Debra Munoz RN RN ca1
[2018-12-19] MEDS ORDERED: HYDROCODONE/APAP 10/325 TAB ONE (17:07)
[2018-12-19] MEDS ORDERED: IBUPROFEN 400 MG TAB ONE (17:08)
--- NOTE | 2018-12-20 06:44 | EKG ---
Test Date: 2018-12-19 Test Time: 12:48:36 Steam Turbine Operator: PRIYANKA MEASUREMENT RESULTS: Intervals: Rate: 58 IA: 178 QRSD: 94 QT: 414 QTc: 406 [place]: P: 69 IA: 178 QRS: -10 T: 64 INTERPRETIVE STATEMENTS: Sinus bradycardia with sinus arrhythmia Otherwise normal ECG Compared to ECG 01/29/2018 08:31:28 No significant changes Electronically Signed On 12-20-18 06:42:35 CDT by Otoniel Grier
== END 2018-12-19 17:10 | disposition home or self-care (01) ==
LOC: ER 12:24
DX: R07.9 Chest pain, unspecified (principal)
CPT/HCPCS: 36415; 71045; 80048; 80076; 83735; 83880; 84484; 85025; 85610; 93005; 99285

== ENCOUNTER 2019-07-07 07:31 | Day surgery (SDC) | payer BC ==
[2019-07-07] MEDS ORDERED: Ringers Lactate 1,000 ML IV ONE (07:45)
[2019-07-07] MEDS ORDERED: PROPOFOL 200 MG/20 ML VIAL IV ONE (08:16)
[2019-07-07] MEDS ORDERED: GLYCOPYRROLATE 0.2 MG/ML SYR ONE (08:16)
[2019-07-07] MEDS ORDERED: LIDOCAINE 1% MPF 30 ML VIAL ONE (08:16)
--- NOTE | 2019-07-07 08:59 | ENDO RPT ---
[address], [address] COLONOSCOPY PROCEDURE REPORT EXAM DATE: 07/07/2019 PATIENT NAME: Jaya Le MR #: [id number] BIRTHDATE: 1975 ATTENDING: Jalen Carbajal DR STATUS: outpatient DRINK BOX MECHANIC: Pily Lazar RN, Sherif Daniels [facility], and Paramjit Nassar RN INDICATIONS: The patient is a 43 yr old Male here for a colonoscopy due to rectal bleeding PROCEDURE PERFORMED: Colonoscopy with biopsy MEDICATIONS: Per Anesthesia. ESTIMATED BLOOD LOSS: None CONSENT: The patient understands the risks and benefits of the procedure and understands that these risks include, but are not limited to: sedation, allergic reaction, infection, perforation and/or bleeding. Alternative means of evaluation and treatment include, among others: physical exam, x-rays, and/or surgical intervention. The patient elects to proceed with this endoscopic procedure. DESCRIPTION OF PROCEDURE: During intra-op preparation period all mechanical medical equipment was checked for proper function. Hand hygiene and appropriate measures for infection prevention was taken. Procedure, possible complications, alternatives including, but not limited to possibility of bleeding, perforation, tear, infection, sepsis, need for surgery, need for blood transfusion, were explained to the patient. After the risks, benefits and alternatives of the procedure were thoroughly explained, Informed consent was verified, confirmed and timeout was successfully executed by the treatment team. The patient was placed in the left lateral position. A digital rectal exam was performed and revealed internal hemorrhoids. After appropriate level of anesthesia, the scope was passed. The EC-[id number] ([id number]) endoscope was introduced through the anus and advanced to the cecum, which was identified by both the appendix and ileocecal valve. The quality of the prep was fair. The instrument was then slowly withdrawn as the colon was fully examined. Scope withdrawal time was 11 minutes. COLON FINDINGS: Moderate sized internal hemorrhoids were found. 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 A biopsy was performed using cold forceps. The colon mucosa was otherwise normal. Retroflexed views revealed no abnormalities. The scope was then completely withdrawn from the patient and the procedure terminated. ADVERSE EVENTS: There were no complications. IMPRESSIONS: 1. Moderate sized internal hemorrhoids 2. Melanosis coli was found in the rectum; biopsy was performed using cold forceps 3. The colon mucosa was otherwise normal RECOMMENDATIONS: 1. avoid NSAIDS for 2 weeks 2. await biopsy results 3. fiber rich diet 4. follow-up: office 2 week(s) 5. Monitor for any evidence of rectal bleeding. 6. hemorrhoidal hygiene 7. yearly hemoccult starting in 4 years RECALL: Return in 5 year(s) for Colonoscopy. Pending Biopsy Jalen Carbajal DR eSigned: Jalen Carbajal DR 07/07/2019 8:59 AM cc: CPT CODES: ICD9 CODES: PATIENT NAME: Jaya Le MR#: [id number]
[2019-07-07 10:30] VITALS: BP 133/87; TEMP 97.5; O2SAT 98
== END 2019-07-07 09:31 | disposition home or self-care (01) ==
LOC: OR 07:31
PROVIDERS: ATTEND Surgery
PROC: 0DBP8ZX Excision of Rectum, Via Natural or Artificial Opening Endoscopic, Diagnostic (ICD-10-PCS; principal; 2019-07-07 08:30)
DX: K62.5 Hemorrhage of anus and rectum (principal); K64.8 Other hemorrhoids; K63.89 Other specified diseases of intestine; Z80.0 Family history of malignant neoplasm of digestive organs
CPT/HCPCS: 45380; 88305; J2704; J7120